=== PATIENT | female | born 1985 | race Caucasian/White ===

== ENCOUNTER 2021-01-23 00:48 | Inpatient (IN) | payer OTHER ==
[~2021-01-23] VITALS: Ht 175.3 cm; Wt 90.0 kg
[2021-01-23] VITALS (34 sets, daily range): BP systolic 104–146; BP diastolic 53–81; PULSE 77–129; TEMP 97.5–98.2
--- NOTE | 2021-01-23 01:00 | NUR ---
PT TO UNIT AMBULATORY WITH SPOUSE WITH COMPLAINTS OF CONTRACTIONS. ORIENTED TO ROOM, CHANGED INTO GOWN, EFM X2 APPLIED, VS OBTAINED, SVE PERFORMED.
[2021-01-23] MEDS ORDERED: B COMPLEX & B121 TAB PO (01:27)
[2021-01-23 01:54] LABS: BASO % 0.5 % (0.0-2.0); EOS # 0.2 (0.0-0.7); GRAN % 69.9 % (42.2-75.2); HEMATOCRIT 38.2 % (37.0-47.0); HEMOGLOBIN 11.8 g/dl (12.5-16.0); LYMPH # 1.5 (1.2-3.4); LYMPH % 17.8 % (20.0-51.0); MEAN CELL VOLUME 79 fl (80.0-100.0); MEAN CORPUSCULAR HEMOGLOBIN 24 pg (27.0-31.0); MEAN CORPUSCULAR HGB CONC 31 g/dl (33.0-37.0); MEAN PLATELET VOLUME 12.3 fl (7.4-10.4); MONO # 0.8 (0.1-0.6); MONO % 9.3 % (1.7-9.3); PLATELET COUNT 225 K/mm3 (130-400); RED BLOOD COUNT 4.83 M/mm3 (4.10-5.30); REDCELL DISTRIBUTION WIDTH-CV 16.4 % (11.5-14.5)
--- NOTE | 2021-01-23 02:10 | NUR ---
PT OFF MONITOR TO AMBULATE.
--- NOTE | 2021-01-23 03:12 | NUR ---
0258- PT SITTING UP AT BEDSIDE FOR EPIDURAL PLACEMENT, Josh VAZQUEZ CRNA IN ROOM. 0304- SINGLE SHOT PLACED BY ASHLY BLACKMAN, PT TOLERATED WELL. 0312- PT REPOSITIONED INTO [facility] FOLLOWING EPIDURAL.
--- NOTE | 2021-01-23 07:35 | NUR ---
Pit start @ 2mU/min per verbal order. Patient agreeable to this plan of care.
--- NOTE | 2021-01-23 08:45 | NUR ---
C/O feeling urge to push. Repeat SVE C/0. in-house, requested he come for delivery. Nursery nurse notified. Room set up for delivery.
--- NOTE | 2021-01-23 08:46 | NUR ---
Florian catheter removed by this production underwriter.
--- NOTE | 2021-01-23 08:47 | NUR ---
0847- here for delivery.
--- NOTE | 2021-01-23 08:52 | NUR ---
0852-First push with instruction. 0857- of head by , rapidly followed by shoulders. 0857- of female infant by . 0901- of placenta by . Pit bolus begun immediately following delivery of placenta @ 333mU/min. repairs 2nd degree laceration with 3-[address]-1. Patient tolerates repair well with epidural block. EBL 100mL per .
--- NOTE | 2021-01-23 13:30 | NUR ---
Note patient right leg still heavy, numb, tingly. Patient able to spontaneously void on bedpan. Edgar care provided. Mesh underwear, edgar pad applied. Transferred to post room 212 per wheelchair at this time.
[2021-01-23] MEDS ORDERED: TOPROL XL 50MG50 MG PO (16:44)
[2021-01-23] MEDS ORDERED: PRENATAL TABLET PO (16:45)
[2021-01-23] MEDS ORDERED: MASON NATURAL325 MG PO (16:45)
[2021-01-23] MEDS ORDERED: LEXAPRO 10MG10 MG PO (16:46)
[2021-01-24 08:00] LABS: HEMOGLOBIN 10.8 g/dl (12.5-16.0)
[2021-01-24] MEDS ORDERED: IBU600 MG PO (08:30)
[2021-01-24 09:00] VITALS: BP 119/72; PULSE 95; TEMP 98.9
== END 2021-01-24 13:10 | disposition home or self-care (01) | DRG 807 ==
LOC: LDRO 00:48 → LDR 01:13 → OB 12:49
PROVIDERS: Obstetrics & Gynecology; ADMIT Obstetrics & Gynecology
PROC: 10E0XZZ Delivery of Products of Conception, External Approach (ICD-10-PCS; principal; 2021-01-23)
PROC: 0KQM0ZZ Repair Perineum Muscle, Open Approach (ICD-10-PCS; 2021-01-23)
DX: O48.0 Post-term pregnancy (principal); Z37.0 Single live birth; Z3A.41 41 weeks gestation of pregnancy; O70.1 Second degree perineal laceration during delivery
CPT/HCPCS: J2590; J7120